=== PATIENT | female | born 2000 | race Two or more races ===

== ENCOUNTER → 2020-11-24 | Outpatient (CLI) | payer SELFPAY | LOC: M LABSMTC 10:54 | PROVIDERS: ATTEND Pediatrics | DX: Z20.822 Contact with and (suspected) exposure to COVID-19 (principal) ==

== ENCOUNTER → 2020-12-24 | Outpatient (REF) | payer OTHER ==
[2020-12-24 13:51] LABS: FOLLICLE STIMULATING HORMONE 9.9 mIU/mL; FREE T4 1.11 NG/DL (0.76-1.46); PROLACTIN 11.4 NG/ML; THYROID STIMULATING HORMONE 1.26 uIU/ML (0.358-3.740)
== END ==
LOC: M LAB REF 12:14
PROVIDERS: ATTEND Obstetrics & Gynecology
DX: N92.1 Excessive and frequent menstruation with irregular cycle (principal)

== ENCOUNTER → 2021-01-06 | Outpatient (CLI) | payer OTHER ==
--- NOTE | 2021-01-06 10:55 | REP ---
INDICATION: N92.1 EXCESSIVE AND FREQUENT MENSTRUATION COMPARISON: None. TECHNIQUE: Transabdominal pelvic ultrasound followed by transvaginal examination for better evaluation of the endometrium and adnexa with color Doppler evaluation of the ovaries. FINDINGS: Bladder is unremarkable and measures 10.3 x 9.8 x 7.0 cm. Normal retroverted uterus measures 6.2 x 3.6 x 4.6 cm. The endometrial complex measures 5 mm thickness. Bilateral ovaries are normal in appearance and vascularity without evidence for torsion. Right ovary measures 2.9 x 1.9 x 1.9 cm; R I = 0.50. Left ovary measures 3.3 x 1.8 x 1.7 cm; R I = 0.55. No pelvic fluid or adnexal mass lesion. IMPRESSION: Normal pelvic ultrasound. <Electronically signed by Joaquim Rivera > 01/06/21 2391
== END ==
LOC: M WHC 10:11
PROVIDERS: ATTEND Obstetrics & Gynecology
DX: N92.1 Excessive and frequent menstruation with irregular cycle (principal)

== ENCOUNTER 2024-04-07 12:35 | Inpatient (IN) | payer MEDICAID, OTHER, SELFPAY ==
[~2024-04-07] VITALS: Ht 152.4 cm; Wt 74.1 kg
[2024-04-07 13:37] LABS: BASO # 0.1 10^3/uL (0.0-0.2); BASO % 0.6 % (0.0-1.0); EOS # 0.2 10^3/uL (0.0-0.5); EOS % 2.2 % (0.0-3.0); HEMATOCRIT 34.9 % (36.0-47.0); HEMOGLOBIN 11.5 g/dl (12.0-15.5); LYMPH # 1.7 10^3/uL (1.5-5.0); LYMPH % 17.6 % (24.0-44.0); MEAN CORPUSCULAR HEMOGLOBIN 28.9 pg (27.0-33.0); MEAN CORPUSCULAR VOLUME 87.7 fl (80.0-96.0); MONO # 0.9 10^3/uL (0.0-0.8); MONO % 9.5 % (2.0-8.0); NEUTROPHILS # 6.7 10^3/uL (1.5-8.5); NEUTROPHILS % 69.9 % (36.0-66.0); PLATELET COUNT, AUTOMATED 408 10^3/uL (150-450); RED BLOOD COUNT 3.98 10^6/uL (4.00-5.40); WHITE BLOOD COUNT 9.5 10^3/uL (4.0-10.0)
[2024-04-07 14:02] LABS: LIPASE 26 U/L (12-53)
[2024-04-07 14:03] LABS: ETHYL ALCOHOL (ETHANOL) < 0.003 % (0.000-0.010)
[2024-04-07 14:04] LABS: SALICYLATE LEVEL < 3.0 MG/DL (<30)
[2024-04-07 14:05] LABS: ALBUMIN 3.9 G/DL (3.2-5.2); ALKALINE PHOSPHATASE 106 U/L (46-116); ALT/SGPT 17 U/L (7.0-40); AST/SGOT 19 U/L (<34); BILIRUBIN,DIRECT 0.2 MG/DL (<0.4); BILIRUBIN,TOTAL 0.6 MG/DL (0.3-1.2); BLOOD UREA NITROGEN 6 MG/DL (9-23); CALCIUM LEVEL 8.9 MG/DL (8.5-10.1); CARBON DIOXIDE LEVEL 26 MMOL/L (20-31); CHLORIDE LEVEL 105 MMOL/L (98-107); CREATININE FOR GFR 0.58 MG/DL (0.55-1.30); GLOMERULAR FILTRATION RATE > 60.0 (>60); GLUCOSE, FASTING 96 MG/DL (60-100); POTASSIUM SERUM 3.7 MMOL/L (3.5-5.1); SODIUM LEVEL 138 MMOL/L (136-145)
[2024-04-07 14:07] LABS: THYROID STIMULATING HORMONE 1.018 uIU/ML (0.55-4.78)
[2024-04-07 14:24] LABS: HCG, SERUM QUALITATIVE NEGATIVE (NEGATIVE)
[2024-04-07 14:57] LABS: AMPHETAMINES LEVEL URINE NEGATIVE (NEGATIVE); BARBITURATES URINE NEGATIVE (NEGATIVE); BENZODIAZEPINES URINE NEGATIVE (NEGATIVE); CANNABINOIDS URINE NEGATIVE (NEGATIVE); COCAINE METABOLITE URINE NEGATIVE (NEGATIVE); METHADONE URINE NEGATIVE (NEGATIVE); OPIATES URINE NEGATIVE (NEGATIVE); PHENCYCLIDINE URINE NEGATIVE (NEGATIVE)
[2024-04-07] MEDS ORDERED: HOME MED LIST COMPLETE! XX SCH (17:15)
[2024-04-07] MEDS: diphenhydrAMINE 25MG CAP PO ONE (23:36)
[2024-04-08] MEDS: LORazepam 1 MG TAB PO STA (09:09)
[2024-04-08] MEDS ORDERED: LORazepam 2 MG TAB PO PRN (18:40)
[2024-04-08] MEDS ORDERED: IBUPROFEN 400MG TAB PO PRN (18:40)
[2024-04-08] MEDS: THIAMINE 100 MG TAB PO SCH (20:59)
[2024-04-08] MEDS: diphenhydrAMINE 25MG CAP PO PRN (20:59)
[2024-04-08 22:00] VITALS: BP 114/76
[2024-04-09] VITALS (7 sets, daily range): BP systolic 107–120; BP diastolic 68–88; TEMP 97.9–98.6; O2SAT 98–100
[2024-04-09] MEDS: traZODone 50 MG TAB PO PRN (01:06)
[2024-04-09] MEDS: SERTRALINE HCL 25 MG TABLET PO SCH (09:00)
[2024-04-09] MEDS: MULTIVITAMINS/MINERALS THERAP 1 TAB PO SCH (09:56)
[2024-04-09] MEDS: FOLIC ACID 1MG TAB PO SCH (09:56)
[2024-04-09] MEDS: ARIPiprazole 2 MG TAB PO SCH (21:15)
[2024-04-10 06:00] VITALS: BP 111/72; TEMP 98; O2SAT 98
[2024-04-10 07:06] LABS: CHOLESTEROL RISK RATIO 2.24 (<5); HDL CHOLESTEROL 66.4 MG/DL (>40); LDL CHOLESTEROL 69.8 MG/DL (<100); NON-HDL-C 82.6 MG/DL
[2024-04-10 18:32] VITALS: BP 116/73; TEMP 98.8
[2024-04-11] MEDS: OLANZapine ORAL DISINTEGRATING TAB 5MG PO PRN (01:50)
[2024-04-11 05:53] VITALS: BP 127/65; TEMP 97.5; O2SAT 100
[2024-04-11 18:43] VITALS: BP 116/63; TEMP 98; O2SAT 98
[2024-04-12 06:30] VITALS: BP 104/68; TEMP 99; O2SAT 97
[2024-04-12] MEDS: SERTRALINE HCL 50 MG TAB PO SCH (09:15)
[2024-04-12 16:09] VITALS: BP 122/68; TEMP 98.3; O2SAT 98
[2024-04-13 06:27] VITALS: BP 119/70; TEMP 97.8; O2SAT 100
[2024-04-13 15:43] VITALS: BP 115/73; TEMP 98.2; O2SAT 100
[2024-04-13] MEDS: MAALOX 30 ML SUSP *UDC PO PRN (21:46)
[2024-04-14 06:43] VITALS: BP 109/72; TEMP 98.4; O2SAT 96
[2024-04-14 15:49] VITALS: BP 114/79; TEMP 98.9; O2SAT 98
[2024-04-14 16:55] VITALS: BP 114/79; TEMP 98.9; O2SAT 98
[2024-04-15 06:40] VITALS: BP 110/57; TEMP 97.7; O2SAT 97
[2024-04-15] MEDS ORDERED: BENZTROPINE 2 MG TAB PO PRN (10:05)
[2024-04-15 17:49] VITALS: BP 110/77; TEMP 98.9
[2024-04-15] MEDS: OLANZapine 5 MG TAB PO SCH (20:56)
[2024-04-16 06:22] VITALS: BP 130/73; TEMP 99.3; O2SAT 95
[2024-04-16 16:19] VITALS: BP 131/67; TEMP 97.4
[2024-04-17 06:21] VITALS: BP 115/61; TEMP 98.8; O2SAT 97
[2024-04-17 18:01] VITALS: BP 128/65; TEMP 97.6
[2024-04-17] MEDS: ARIPiprazole 2 MG TAB PO SCH (21:21)
[2024-04-17] MEDS: OLANZapine 10 MG TAB PO SCH (21:21)
[2024-04-18 06:15] VITALS: BP 119/79; TEMP 98; O2SAT 96
[2024-04-18 16:06] VITALS: BP 130/76; TEMP 97.6; O2SAT 99
[2024-04-19 06:41] VITALS: BP 117/63; TEMP 98.1; O2SAT 97
[2024-04-19 16:00] VITALS: BP 133/73; TEMP 98.4; O2SAT 97
[2024-04-19] MEDS: OLANZapine 5 MG TAB PO SCH (21:13)
[2024-04-20 06:00] VITALS: BP 126/63; TEMP 98.3; O2SAT 97
[2024-04-20] MEDS: ACETAMINOPHEN TAB 650MG DOSE (2X325MG) PO PRN (09:19)
[2024-04-20 16:11] VITALS: BP 120/72; TEMP 98; O2SAT 98
[2024-04-20] MEDS: MOM 30ML SUSPENSION UDC PO PRN (21:14)
[2024-04-21 06:23] VITALS: BP_SYST 110; BP_SYST 116; BP_DIAS 55; BP_DIAS 74; TEMP 97.7; O2SAT 96
[2024-04-21 18:00] VITALS: BP 125/66; TEMP 97.2; O2SAT 98
[2024-04-22 06:05] VITALS: BP 117/60; TEMP 97.1; O2SAT 97
[2024-04-22] MEDS ORDERED: TRAZ-252 PO (09:45)
[2024-04-22] MEDS ORDERED: OLAN15TA13 PO (09:45)
[2024-04-22] MEDS ORDERED: SERT50TA29 PO (09:45)
[2024-04-22] MEDS ORDERED: ABIL1TAB11 PO (09:45)
== END 2024-04-22 11:35 | disposition home or self-care (01) | DRG 755 ==
LOC: M ED 12:35 → M ED INP 04-08 18:37 → M PSY 04-08 20:32
PROVIDERS: ADMIT Student in an Organized Health Care Education/Training Program; ATTEND Student in an Organized Health Care Education/Training Program
DX: F43.10 Post-traumatic stress disorder, unspecified (principal); F32.3 Major depressive disorder, single episode, severe with psychotic features; F32.A Depression, unspecified; Z63.5 Disruption of family by separation and divorce; Z91.410 Personal history of adult physical and sexual abuse; Z91.411 Personal history of adult psychological abuse; Z56.0 Unemployment, unspecified

== ENCOUNTER 2024-04-28 03:32 | Emergency (ER) | payer MEDICAID, SELFPAY ==
[~2024-04-28] VITALS: Ht 152.4 cm; Wt 76.4 kg
[~2024-04-28 03:32] MED LIST: ABIL1TAB11 PO; OLAN15TA13 PO; SERT50TA29 PO; TRAZ-252 PO
[2024-04-28 03:33] VITALS: BP 125/76; TEMP 97.7; O2SAT 99
== END 2024-04-28 05:09 | disposition left against medical advice (07) ==
LOC: M ED 03:32
DX: Z53.21 Procedure and treatment not carried out due to patient leaving prior to being seen by health care provider (principal)